=== PATIENT | female | born 1935 | race Caucasian/White ===

== ENCOUNTER 2016-11-11 05:54 | Inpatient (IN) | payer MEDICARE, OTHER ==
[~2016-11-11] VITALS: Ht 160 cm; Wt 56.7 kg
[2016-11-11] MEDS ORDERED: PROVENTIL HFA 61 INH INH (07:39)
[2016-11-11] MEDS ORDERED: VALIUM 2 MG TAB2 MG PO (07:40)
[2016-11-11] MEDS ORDERED: ARICEPT10 MG PO (07:41)
[2016-11-11] MEDS ORDERED: LEXAPRO20 MG PO (07:41)
[2016-11-11] MEDS ORDERED: ZANTAC150 MG PO (07:43)
[2016-11-11] MEDS ORDERED: INDERAL TAB 1010 MG PO (07:43)
[2016-11-11] MEDS ORDERED: BACTRIM DS TAB1 EACH PO (07:44)
[2016-11-11 12:59] LABS: BUN/CREATININE RATIO 34 (0-10)
[2016-11-12 03:34] LABS: HEMOGLOBIN 10.1 gm/dl (12.3-15.3); RED BLOOD COUNT 3.48 M/UL (4.00-5.10)
[2016-11-12 03:52] LABS: BUN/CREATININE RATIO 36 (0-10)
[2016-11-13 05:21] LABS: HEMOGLOBIN 10.5 gm/dl (12.3-15.3); RED BLOOD COUNT 3.63 M/UL (4.00-5.10); WHITE BLOOD COUNT 13.8 K/UL (4.5-11.0)
[2016-11-13 06:00] LABS: BUN/CREATININE RATIO 33 (0-10)
--- NOTE | 2016-11-13 10:49 | NUR ---
1015: PT/OT IN TO GET PATIENT UP, COUGHING WITH SCAN AMOUNT OF CLEAR SPUTUM RETURNED. LUNGS AUSCULTATED AND NOW NOTE TIGHT EXPIRATORY WHEEZES THROUGHOUT, WITH SP02 NOTED TO 85%. ABG OBTAINED AND NOTED, NEB TREATMENT GIVEN, WITH SPO2 IMPROVING TO 95% DURING TREATMENT, DECREASED TO 90% AFTER NEB COMPLETED. DR. WINNIE KAUFMAN, UPDATED REGARDING THIS EVENT.
[2016-11-14 04:58] LABS: HEMOGLOBIN 10.2 gm/dl (12.3-15.3); RED BLOOD COUNT 3.52 M/UL (4.00-5.10)
[2016-11-14 04:59] LABS: WHITE BLOOD COUNT 9.7 K/UL (4.5-11.0)
[2016-11-14 05:18] LABS: BUN/CREATININE RATIO 28 (0-10)
--- NOTE | 2016-11-14 18:30 | NUR ---
CURRENTLY RESTING WITH NO S/S OF PAIN. IV PATENT WITH NO S/S OF INFILTRATION. FAMILY AT BEDSIDE. CALL LIGHT WITHIN REACH. WILL CONTINUE TO MONITOR.
[2016-11-15 07:32] LABS: HEMOGLOBIN 10.7 gm/dl (12.3-15.3); RED BLOOD COUNT 3.68 M/UL (4.00-5.10)
[2016-11-15 07:35] LABS: BUN/CREATININE RATIO 26 (0-10)
--- NOTE | 2016-11-15 18:20 | NUR ---
CURRENTLY THE PATIENT IS RESTING WITH EYES CLOSE. IV PATENT WITH NO S/S OF REDNESS OR EDEMA. CALL LIGHT WITH IN REACH. WILL CONTINUE TO MONITOR.
[2016-11-16 05:02] LABS: HEMOGLOBIN 10.7 gm/dl (12.3-15.3); RED BLOOD COUNT 3.68 M/UL (4.00-5.10); WHITE BLOOD COUNT 9.6 K/UL (4.5-11.0)
--- NOTE | 2016-11-16 18:02 | NUR ---
CURENTLY PATIENT IS RESTING IN FOWLERS POSITION. NO C/O PAIN. CONTINUING HER BOWEL PREP. WILL CONTINUE TO MONITOR.
[2016-11-17 04:28] LABS: HEMOGLOBIN 10.6 gm/dl (12.3-15.3); RED BLOOD COUNT 3.71 M/UL (4.00-5.10); WHITE BLOOD COUNT 10.1 K/UL (4.5-11.0)
[2016-11-17 04:49] LABS: BUN/CREATININE RATIO 23 (0-10)
--- NOTE | 2016-11-17 18:30 | NUR ---
PATIENT HAD HER COLONOSCOPY TODAY. WILL BE GOING BACK TO [facility] TOMORROW. CURRENTLY RESTING IN FOWLERS. NO S/S OF PAIN OR RESPIRATORY DISTRESS. WILL CONTINUE TO MONITOR.
== END 2016-11-18 15:01 | DRG 177 ==
LOC: MED SURG 4 07:18 → CCU 07:18 → MED SURG 4 11-12 17:55
PROVIDERS: Internal Medicine; Internal Medicine Gastroenterology; Internal Medicine Infectious Disease; Physician Assistant; ADMIT Internal Medicine
PROC: 0DJD8ZZ Inspection of Lower Intestinal Tract, Via Natural or Artificial Opening Endoscopic (ICD-10-PCS; principal; 2016-11-17 18:00)
DX: J69.0 Pneumonitis due to inhalation of food and vomit (principal); J96.21 Acute and chronic respiratory failure with hypoxia; J96.22 Acute and chronic respiratory failure with hypercapnia; I50.33 Acute on chronic diastolic (congestive) heart failure; J44.1 Chronic obstructive pulmonary disease with (acute) exacerbation; J44.0 Chronic obstructive pulmonary disease with (acute) lower respiratory infection; D62 Acute posthemorrhagic anemia; I11.0 Hypertensive heart disease with heart failure; K64.8 Other hemorrhoids; D12.2 Benign neoplasm of ascending colon; D12.9 Benign neoplasm of anus and anal canal; D63.8 Anemia in other chronic diseases classified elsewhere; Y95 Nosocomial condition; J20.9 Acute bronchitis, unspecified; E87.6 Hypokalemia; F17.210 Nicotine dependence, cigarettes, uncomplicated; F03.90 Unspecified dementia, unspecified severity, without behavioral disturbance, psychotic disturbance, mood disturbance, and anxiety; M19.90 Unspecified osteoarthritis, unspecified site; T17.920A Food in respiratory tract, part unspecified causing asphyxiation, initial encounter; Z86.14 Personal history of Methicillin resistant Staphylococcus aureus infection; Z86.73 Personal history of transient ischemic attack (TIA), and cerebral infarction without residual deficits; Z79.899 Other long term (current) drug therapy
CPT/HCPCS: ECHO; 36415; 36600; 71010; 71020; 80048; 80053; 80202; 82270; 82550; 82553; 82607; 82728; 82746; 82803; 83540; 83550; 83735; 83880; 84100; 84443; 84484; 85025; 85027; 87040; 92526; 92610; 93306; 94640; 94660; 94664; 97110; 97116; 97530; J0461; J1630; J1650; J1940; J1956; J2543; J2920; J3370; J7040; J7050; J7070